=== PATIENT | male | born 1995 | race Two or more races ===

== ENCOUNTER 2021-06-03 22:31 | Emergency (ER) | payer OTHER ==
[~2021-06-03] VITALS: Ht 167.6 cm; Wt 85.7 kg
--- NOTE | 2021-06-03 22:37 | PHYS DOC ---
General Adult HPI: HPI: ".. I fell during training on .. during training.. but I ve been sore since.. It was like for force [employer].. I was seen at [place].. ". 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 Patient does have contusions to both knees. Pain is on patellas. Can do straight leg lift. Does have a noticeable click on range of motion of the right knee. Patient localizes pain in back at approximately T7 area and just to the left of the spinal column. There are some radiation to the subscapular scapular area of shoulder blade. Patient denies any other injury. No history recent travel. No specific ill contacts. Patient normally healthy. No recent TDY's. Review of Systems: Review of Systems: Constitutional: Denies fever or chills Eyes: Denies change in visual acuity HENT: Denies nasal congestion or sore throat Respiratory: Denies cough or shortness of breath Cardiovascular: Denies chest pain or edema GI: Denies abdominal pain, nausea, vomiting, bloody stools or diarrhea : Denies dysuria Musculoskeletal: Complains of mid back pain. Complains of bilateral knee pain Integument: Denies rash Neurologic: Denies headache, focal weakness or sensory changes Endocrine: Denies polyuria or polydipsia Lymphatic: Denies swollen glands Psychiatric: Denies depression or anxiety Family History: Family History: Noncontributory to presentation Current Medications: Current Meds: See nursing for home meds Allergies: Allergies: No known drug allergies Physical Exam: PE: Constitutional: Well developed, well nourished, no acute distress, non-toxic appearance. [] HENT: Normocephalic, atraumatic, bilateral external ears normal, oropharynx mois t, no oral exudates, nose normal. [] Eyes: PERRLA, EOMI, conjunctiva normal, no discharge. [] Neck: Normal range of motion, no tenderness, supple, no stridor. [] Cardiovascular:Heart rate regular rhythm, no murmur [] Lungs & Thorax: Bilateral breath sounds clear to auscultation [] Abdomen: Bowel sounds normal, soft, no tenderness, no masses, no pulsatile masses. [] Skin: Warm, dry, no erythema, no rash. [] Back: Mid back tenderness, just left of spinal column and some scapular area, no CVA tenderness. [] Extremities: Bilateral patella and knee tenderness, no cyanosis, no clubbing, ROM intact, no edema. [] Neurologic: Alert and oriented X 3, normal motor function, normal sensory function, no focal deficits noted. [] Psychologic: Affect normal, judgement normal, mood normal. [] EKG: EKG: [] Radiology/Procedures: Radiology/Procedures: [address] [address] IMAGING REPORT Signed PATIENT: THEODORA BANUELOS ACCOUNT: [id number] : 1995 LOCATION: ER AGE: 26 SEX: M EXAM STATUS: REG ER ORD. PHYSICIAN: TIKA BONILLA MD REASON: Injury during training at long-term, chest and back pain PROCEDURE: CHEST PA & LATERAL Bilateral knee x-rays 4 views each HISTORY: Bilateral knee pain. FINDINGS: No fracture. No dislocation. No arthritic change. No bone lesion. Soft tissues are normal. IMPRESSION: Normal exam. PA and lateral chest x-rays HISTORY: Injury, chest and back pain. FINDINGS: Heart size normal. Mediastinal silhouette is normal. No pneumothorax, pulmonary opacities or pleural effusions. Bones are unremarkable. IMPRESSION: Normal exam. Electronically signed by: Endy Pretty MD (06/04/2021 12:22 AM) [facility] DICTATED AND SIGNED BY: ENDY PRETTY MD DATE: 06/04/2119 CC: TIKA BONILLA MD; [facility] ~MTH0 [address] [address] IMAGING REPORT Signed PATIENT: THEODORA BANUELOS ACCOUNT: [id number] : 1995 LOCATION: ER AGE: 26 SEX: M EXAM STATUS: REG ER ORD. PHYSICIAN: TIKA BONILLA MD REASON: Injury during force cell move training at long-term, bilat knee pain PROCEDURE: KNEE BILAT 4V Bilateral knee x-rays 4 views each HISTORY: Bilateral knee pain. FINDINGS: No fracture. No dislocation. No arthritic change. No bone lesion. Soft tissues are normal. IMPRESSION: Normal exam. PA and lateral chest x-rays HISTORY: Injury, chest and back pain. FINDINGS: Heart size normal. Mediastinal silhouette is normal. No pneumothorax, pulmonary opacities or pleural effusions. Bones are unremarkable. IMPRESSION: Normal exam. Electronically signed by: Endy Pretty MD (06/04/2021 12:22 AM) [facility] DICTATED AND SIGNED BY: ENDY PRETTY MD DATE: 06/04/2119 CC: TIKA BONILLA MD; [facility] ~MTH0 0 [][place] [address] IMAGING REPORT Signed PATIENT: THEODORA BANUELOS ACCOUNT: [id number] : 1995 LOCATION: ER AGE: 26 SEX: M EXAM STATUS: REG ER ORD. PHYSICIAN: TIKA BONILLA MD REASON: injury, forced cell move at long-term for training, pain to mid back PROCEDURE: CT THORACIC SPINE WO CONTRAST CT thoracic spine without contrast PQRS statement: CT scans at this facility use dose reduction including either automated exposure control, iterative reconstructions, and /or weight based radiation dosing via mA and kV modification when appropriate to reduce radiation dose to as low as reasonably achievable. HISTORY: Mid back pain after injury. FINDINGS: Thoracic vertebral body height and alignment intact. No fracture. No spondylolysis defect. No bone lesion. At the lower thoracic spine there are changes of degenerative disc disease with mild disc height loss with endplate Schmorl's nodes and probable mild disc bulges at T10-T11 and T11-T12. The bony spinal canal and neural foramina of the thoracic spine are grossly patent. Right lateral T5-T6 disc osteophyte. Paraspinal tissues are normal. IMPRESSION: No acute osseous injury of the thoracic spine. Thoracic disc disease as described above. Electronically signed by: Endy Pretty MD (06/04/2021 12:19 AM) [facility] DICTATED AND SIGNED BY: ENDY PRETTY MD DATE: 06/04/21 001 CC: TIKA BONILLA MD; [facility] ~MTH0 0 Heart Score: C/O Chest Pain: N/A Risk Factors: Risk Factors: DM, Current or recent (<one month) smoker, HTN, HLP, family history of CAD, obesity. Risk Scores: Score 0 - 3: 2.5% MACE over next 6 weeks - Discharge Home Score 4 - 6: 20.3% MACE over next 6 weeks - Admit for Clinical Observation Score 7 - 10: 72.7% MACE over next 6 weeks - Early Invasive Strategies Course & Med Decision Making: Course & Med Decision Making Pertinent Labs and Imaging studies reviewed. (See chart for details) Use Tylenol ibuprofen as needed for discomfort. Use Bishop wrap on right knee. Follow-up with primary care. Follow-up with Ortho if continued problems with right knee. May take Flexeril 10 mg up to 3 times a day for muscle spasms. Impression: 1. Back Injury- Sprain / Strain 2. Bilateral Knee Patellar contusion [] Dragon Disclaimer: Dragon Disclaimer: This electronic medical record was generated, in whole or in part, using a voice recognition dictation system. Departure Departure: Scripts Cyclobenzaprine Hcl (CYCLOBENZAPRINE HCL) 10 Mg Tablet 10 MG PO TID PRN PRN for spasms, #30 TAB Prov: TIKA BONILLA MD 06/03/21 Dragon Disclaimer This chart was dictated in whole or in part using Voice Recognition software in a busy, high-work load, and often noisy Emergency Department environment. It may contain unintended and wholly unrecognized errors or omissions. Dragon Disclaimer This chart was dictated in whole or in part using Voice Recognition software in a busy, high-work load, and often noisy Emergency Department environment. It may contain unintended and wholly unrecognized errors or omissions. TIKA BONILLA MD Jun 03, 2021 22:37
[2021-06-03] MEDS ORDERED: CYCL10TA19 PO (23:34)
[2021-06-03] MEDS ORDERED: ORPHENADRINE CITRATE 60 MG/2 ML VIAL. IM ONE (23:45)
[2021-06-03] MEDS ORDERED: methylPREDNISolone ACETATE 40 MG/ML VIAL. IM ONE (23:45)
[2021-06-03] MEDS ORDERED: KETOROLAC 60 MG/2 ML VIAL. IM ONE (23:45)
--- NOTE | 2021-06-04 00:22 | RAD ---
CT thoracic spine without contrast PQRS statement: CT scans at this facility use dose reduction including either automated exposure cont rol, iterative reconstructions, and /or weight based radiation dosing via mA and kV modification when appropriate to reduce radiation dose to as low as reasonably achievable. HISTORY: Mid back pain after injury. FINDINGS: Thoracic vertebral body height and alignment intact. No fracture. No spondylolysis defect. No bone lesion. At the lower thoracic spine there are changes of degenerative disc disease with mild disc height loss with endplate Schmorl's nodes and probable mild disc bulges at T10-T11 and T11-T12. The bony spinal canal and neural foramina of the thoracic spine are grossly patent. Right lateral T5- T6 disc osteophyte. Paraspinal tissues are normal. IMPRESSION: No acute osseous injury of the thoracic spine. Thoracic disc disease as described above. Electronically signed by: Ron Pretty MD (06/04/2021 12:19 AM) [facility]
--- NOTE | 2021-06-04 00:25 | RAD ---
Bilateral knee x-rays 4 views each HISTORY: Bilateral knee pain. FINDINGS: No fracture. No dislocation. No arthritic change. No bone lesion. Soft tissues are normal. IMPRESSION: Normal exam. PA and lateral chest x-rays HISTORY: Injury, chest and back pain. FINDINGS: Heart size normal. Mediastinal silhouette is normal. No pneumothorax, pulmonary opacities o r pleural effusions. Bones are unremarkable. IMPRESSION: Normal exam. Electronically signed by: Ron Pretty MD (06/04/2021 12:22 AM) [facility]
--- NOTE | 2021-06-04 00:25 | RAD ---
Bilateral knee x-rays 4 views each HISTORY: Bilateral knee pain. FINDINGS: No fracture. No dislocation. No arthritic change. No bone lesion. Soft tissues are normal. IMPRESSION: Normal exam. PA and lateral chest x-rays HISTORY: Injury, chest and back pain. FINDINGS: Heart size normal. Mediastinal silhouette is normal. No pneumothorax, pulmonary opacities o r pleural effusions. Bones are unremarkable. IMPRESSION: Normal exam. Electronically signed by: Ron Pretty MD (06/04/2021 12:22 AM) [facility]
[2021-06-04 00:35] VITALS: BP 134/68
== END 2021-06-04 00:36 | disposition home or self-care (01) ==
LOC: ER 22:31
DX: S23.3XXA Sprain of ligaments of thoracic spine, initial encounter (principal); S80.02XA Contusion of left knee, initial encounter; S80.01XA Contusion of right knee, initial encounter; W18.39XA Other fall on same level, initial encounter; Y93.89 Activity, other specified; Y92.149 Unspecified place in prison as the place of occurrence of the external cause; Y99.8 Other external cause status
CPT/HCPCS: 71046; 72128; 73564; 96372; 99284; J1030; J1885; J2360